=== PATIENT | female | born 1980 | race Caucasian/White ===

== ENCOUNTER 2017-08-03 07:38 | Emergency (ER) | payer MEDICAID ==
[2017-08-03] MEDS ORDERED: Lidocaine 1% 20 ML MDV ONE (08:12)
[2017-08-03] MEDS ORDERED: cefTRIAXone\\ROCEPHIN 1 GM VIAL ONE (08:12)
== END 2017-08-03 08:35 | disposition home or self-care (01) ==
LOC: MADERS 07:38
DX: J20.9 Acute bronchitis, unspecified (principal); J45.909 Unspecified asthma, uncomplicated; I10 Essential (primary) hypertension; F17.210 Nicotine dependence, cigarettes, uncomplicated; F31.9 Bipolar disorder, unspecified; F90.9 Attention-deficit hyperactivity disorder, unspecified type; Z79.899 Other long term (current) drug therapy
CPT/HCPCS: 96372; J0696; J1040; J2001